=== PATIENT | female | born 1960 | race Caucasian/White ===

== ENCOUNTER → 2016-06-19 | Outpatient (CLI) | payer BC ==
[~2016-06-19] MED LIST: ALPR-385 PO; DESV100T2 PO; HYDR25CA PO; LORA-741 PO; MULTTAB58 PO
--- NOTE | 2016-06-19 16:39 | MAMMOGRAPHY REPORT ---
UNILATERAL RIGHT DIGITAL DIAGNOSTIC MAMMOGRAM TOMOSYNTHESIS WITH CAD AND TARGETED RIGHT ULTRASOUND: 06/19/2016 CLINICAL HISTORY: 56-year-old woman presents for follow-up in the right breast status post benign ul trasound-guided core needle biopsy in the 8:00 to 9:00 anterior breast; the biopsy marker clip was l ocated more medial and slightly anterior to the nodular asymmetry in question based on the postproce dure images. TECHNIQUE: Right CC and MLO 2-D digital and tomosynthesis images were obtained. An additional right CC projection including tomosynthesis images was obtained with different positioning to try to mikael c the mammogram obtained 11/01/2015. Current study was also evaluated with a Computer Aided Detecti on (CAD) system. COMPARISON: Comparison is made to exams dated: 11/14/2015 mammogram, 11/14/2015 ultrasound biopsy, 02/2016 mammogram, 11/04/2015 ultrasound, 11/01/2015 mammogram, and 06/08/2010 mammogram - [facility]. BREAST COMPOSITION: There are scattered areas of fibroglandular density in the right breast. FINDINGS: There is a stable ribbon shaped metallic biopsy marker in the retroareolar right breast. There is decreased prominence of the previously observed nodular asymmetry in the lateral, middle to posterior right breast, only seen on the CC view, which confirms benignity. No new suspicious mass, architectural distortion, developing asymmetry or cluster of microcalcifications is seen. Targeted ultrasound was performed throughout the lateral right breast. In the 9:[address], there is an oval parallel circumscribed anechoic benign simple cyst measuring 3.2 x 1.6 x 3.1 mm . 2 adjacent predominately anechoic cysts are identified in the right 8:00 periareolar breast measu ring approximately 2.8 and 3.2 mm. No suspicious solid mass is seen through the remainder of the la teral right breast including the 12:00 and 6:00 axes. IMPRESSION: ACR BI-RADS CATEGORY 2: BENIGN, TARGETED ULTRASOUND ACR BI-RADS CATEGORY 2: BENIGN Decreased prominence versus resolution of the nodular asymmetry in the lateral right breast. Stable metallic biopsy marker in the retroareolar right breast. No mammographic or targeted sonographic e vidence of malignancy in the right breast. Recommend follow-up at time of next annual screening [facility] 2017). Approximately 10% of breast cancers are not detected with mammography. A negative mammographic repor t should not delay biopsy if a clinically suggestive mass is present. Danielle Lane M.D. ay/:06/19/2016 14:48:33 Sales Office Administrator: Felicia Klein, [facility] letter sent: Normal 1/2 BI-RADS Code: ACR BI-RADS Category 2: Benign Ultrasound BI-RADS: ACR BI-RADS Category 2: Benign
== END | disposition home or self-care (01) ==
LOC: C.MAMM 10:30
PROVIDERS: ATTEND Nurse Practitioner Family
DX: N64.89 Other specified disorders of breast (principal); Z98.890 Other specified postprocedural states

== ENCOUNTER → 2016-07-20 | Outpatient (CLI) | payer BC ==
--- NOTE | 2016-07-20 10:36 | DIAGNOSTIC IMAGING REPORT ---
MRI OF THE BRAIN COMBO CLINICAL HISTORY: Headache. Follow-up abnormal MRI. COMPARISON STUDY: MRI of the brain dated 09/01/2013. TECHNIQUE: MRI of the brain was performed utilizing various T1 and T2-weighted sequences in the axial, sagittal, and coronal planes. Contrast-enhanced sequences were acquired following the administration of 7 cc of Gadavist. The examination is modestly degraded by motion artifact. FINDINGS: Brain parenchyma: There is minimal periventricular microangiopathic change. A prominent perivascular space in the left subinsular cortex is unchanged. There is no hemorrhage or mass effect. There is no restricted diffusion to suggest acute ischemia. No enhancing mass lesion is identified on the postcontrast images. Tim-white matter differentiation is preserved. No extra-axial fluid collection is seen. The cerebellar tonsils are normal in configuration. Ventricles, sulci, and cisterns: Normal in configuration. Pituitary and sella: Unremarkable. Intracranial vasculature: Normal flow voids are maintained at the skull base. Orbits: The bony orbits are grossly intact. Orbital contents are normal in appearance. Sinuses and mastoids: There are small mastoid effusions. The paranasal sinuses are clear. Calvarium: Unremarkable. Cervical cord: Partially visualized cervical spinal cord is normal in morphology and signal intensity. Soft tissues: The tiny Tornwaldt cyst suggested previously is less apparent on today's examination. IMPRESSION: 1. No acute intracranial abnormality. 2. Mild chronic changes as above. Electronically signed by: Frederick Sorto M.D. 07/20/2016 10:34 AM Dictated Date/Time: 07/20/2016 10:29 AM
== END | disposition home or self-care (01) ==
LOC: C.MRIBC 09:33
PROVIDERS: ATTEND Psychiatry & Neurology Neurology
DX: R94.02 Abnormal brain scan (principal); R51 Headache

== ENCOUNTER → 2016-12-20 | Outpatient (CLI) | payer BC ==
--- NOTE | 2016-12-21 14:54 | MAMMOGRAPHY REPORT ---
BILATERAL DIGITAL SCREENING MAMMOGRAM TOMOSYNTHESIS WITH CAD: 12/20/2016 CLINICAL HISTORY: Routine screening. Patient has no complaints. TECHNIQUE: Breast tomosynthesis in addition to standard 2D mammography was performed. Current study was also evaluated with a Computer Aided Detection (CAD) system. COMPARISON: Comparison is made to exams dated: 06/19/2016 mammogram, 11/01/2015 mammogram, 06/08/2010 ma mmogram, 10/22/2005 mammogram, 06/20/2001 mammogram, and 06/19/2016 ultrasound - [facility] enter. BREAST COMPOSITION: There are scattered areas of fibroglandular density in both breasts. FINDINGS: No suspicious masses, calcifications, or areas of architectural distortion are noted in ei ther breast. There has been no significant interval change compared to prior exams. A biopsy marker clip is noted in the right 6:00 breast. Bilateral asymmetries are stable. IMPRESSION: ACR BI-RADS CATEGORY 2: BENIGN There is no mammographic evidence of malignancy. A 1 year screening mammogram is recommended. The pa tient will receive written notification of the results. Approximately 10% of breast cancers are not detected with mammography. A negative mammographic report should not delay biopsy if a clinically suggestive mass is present. Kerri Ritchie M.D. ah/:12/20/2016 15:39:53 Sofa Back Upholsterer: Rosalba HARRINGTON)(Luis), [facility] letter sent: Normal 1/2 BI-RADS Code: ACR BI-RADS Category 2: Benign
== END | disposition home or self-care (01) ==
LOC: C.MAMM 11:00
PROVIDERS: ATTEND Nurse Practitioner Family
DX: Z12.31 Encounter for screening mammogram for malignant neoplasm of breast (principal)

== ENCOUNTER → 2017-08-06 | Outpatient (CLI) | payer OTHER ==
--- NOTE | 2017-08-06 13:07 | DIAGNOSTIC IMAGING REPORT ---
L ANKLE MIN 3 VIEWS ROUTINE CLINICAL HISTORY: S99.919A LEFT ANKLE PAIN STATUS POST TRAUMA COMPARISON: None. DISCUSSION: No fractures or dislocations are visualized. IMPRESSION: No fractures or dislocations identified. Electronically signed by: Kostas Paul M.D. 08/06/2017 1:06 PM Dictated Date/Time: 08/06/2017 1:05 PM
== END | disposition home or self-care (01) ==
LOC: C.RAD1850 12:49
PROVIDERS: ATTEND Nurse Practitioner Family
DX: S99.912A Unspecified injury of left ankle, initial encounter (principal); X58.XXXA Exposure to other specified factors, initial encounter